=== PATIENT | male | born 1960 | race Caucasian/White ===

== ENCOUNTER 2020-09-10 08:11 | Observation (INO) ==
[~2020-09-10 08:11] MED LIST: Vancomycin 1,500 MG/265 ML IV.SOLN IVPB ONE
[2020-09-10] MEDS ORDERED: CeFAZolin Syr 2,000MG/20 ML 2,000 MG/20 ML SYRINGE IVPB ONE (08:37)
[2020-09-10] MEDS ORDERED: Albuterol 2.5 MG/3 ML NEBULIZER IH PRN (08:37)
[2020-09-10] MEDS ORDERED: Ringers Solution, Lactated 1,000 ML IVC SCH (08:45)
[2020-09-10] MEDS ORDERED: *HR* OxyCODONE ER (12 HR) 10 MG TABLET PO ONE (09:08)
[2020-09-10] MEDS ORDERED: *HR* OxyCODONE Immed Rel 5 MG TABLET PO PRN ×2 (09:10→13:35)
[2020-09-10] MEDS ORDERED: Ondansetron 4 MG/2 ML VIAL IVP PRN ×2 (09:10→13:35)
[2020-09-10] MEDS ORDERED: *HR* FentaNYL (PF) 100 MCG/2 ML VIAL ONE ×2 (09:43→10:04)
[2020-09-10] MEDS ORDERED: Ropivacaine/PF 0.5% 30 ML VIAL ONE (09:43)
[2020-09-10] MEDS ORDERED: *HR* Midazolam HCl 2 MG/2 ML VIAL ONE ×2 (09:43→10:04)
[2020-09-10] MEDS ORDERED: *HR* Succinylcholine 200 MG/10 ML VIAL IVP ONE (10:04)
[2020-09-10] MEDS ORDERED: *HR* Propofol 200 MG/20 ML VIAL IVP ONE (10:04)
[2020-09-10] MEDS ORDERED: Lidocaine HCL 4 ML Topical Solution (Laryng-O-Jet Kit Sterile Pak) TP ONE (10:04)
[2020-09-10] MEDS ORDERED: Lidocaine -MPF 2% 2 ML VIAL ONE (10:04)
[2020-09-10] MEDS ORDERED: Ondansetron 4 MG/2 ML VIAL ONE (10:04)
[2020-09-10] MEDS ORDERED: Tranexamic Acid 1,000 MG/10 ML VIAL ONE (10:16)
[2020-09-10] MEDS ORDERED: Vancomycin 1,000 MG VIAL ONE (10:39)
[2020-09-10] MEDS ORDERED: Ethanol\\Acetic Acid\\Na Ace\\Ben 1,000 ML IRRIG.SOLN IR ONE (10:39)
[2020-09-10] MEDS ORDERED: Dexamethasone 4 MG/ML VIAL ONE (11:16)
[2020-09-10] MEDS ORDERED: Povidone-Iodine 45 ML, Sodium Chloride IRRigation 1,000 ML IR ONE (11:25)
[2020-09-10] MEDS ORDERED: TOTAL JOINT MIXTURE (100ML) INTRAART ONE (11:25)
[2020-09-10] MEDS ORDERED: *HR* HYDROMORPHONE 2 MG/ML VIAL ONE (12:06)
[2020-09-10] MEDS: *HR* HYDROmorphone PF 0.5 MG/0.5 ML SYRINGE IVP PRN ×3 (12:47→13:07)
[2020-09-10 13:11] LABS: Hematocrit 42.3 % (37.5-50.1); Hemoglobin 14.1 g/dL (12.9-16.9)
[2020-09-10] MEDS ORDERED: D5% in Water 1,000 ML IVC PRN (13:35)
[2020-09-10] MEDS ORDERED: Dextrose Gel 15 GM/37.5 ML TUBE PO PRN ×2 (13:35)
[2020-09-10] MEDS ORDERED: MOM Conc 10 ML UD.LIQ PO PRN (13:35)
[2020-09-10] MEDS ORDERED: Sennosides 8.6 MG TABLET PO PRN (13:35)
[2020-09-10] MEDS ORDERED: *HR* Promethazine 25 MG/ML VIAL IM PRN (13:35)
[2020-09-10] MEDS ORDERED: Naloxone 0.4 MG/ML INJ IVP PRN (13:35)
[2020-09-10] MEDS ORDERED: HYDROcodone BIT/Homatropine 5 MG TABLET PO PRN (13:35)
[2020-09-10] MEDS ORDERED: *HR* Dextrose 50 % in Water (Vial) 50 ML VIAL IVP PRN (13:35)
[2020-09-10] MEDS ORDERED: Apixaban 5 MG TABLET PO SCH (14:45)
[2020-09-10] MEDS: Ringers Solution, Lactated 1,000 ML IVC SCH (15:07)
[2020-09-10] MEDS: Insulin LISPRO 300 UNITS/3 ML VIAL SUBQ SCH ×3 (15:08→21:10)
[2020-09-10] MEDS ORDERED: Perflutren Lipid Microsphere 1.3 ML in 0.9 % Sodium Chloride 8.7 ML IVP PRN (16:02)
[2020-09-10] MEDS ORDERED: 0.9 % Sodium Chloride 1,000 ML IVC SCH (16:15)
[2020-09-10] MEDS: Ipratropium/Albuterol Neb 3 ML IH SCH ×2 (17:34→21:57)
[2020-09-10] MEDS: Ascorbic Acid 500 MG TABLET PO SCH (18:00)
[2020-09-10] MEDS ORDERED: Vancomycin 1,500 MG/265 ML IV.SOLN IVPB ONE (21:00)
[2020-09-10] MEDS: CeFAZolin 2 GM/120 ML BAG IVPB SCH (21:09)
[2020-09-10] MEDS: BuPROPion SR (12 HR) 150 MG TABLET PO SCH (21:10)
[2020-09-10] MEDS: Apixaban 5 MG TABLET PO SCH (21:10)
[2020-09-11] MEDS: CeFAZolin 2 GM/120 ML BAG IVPB SCH (03:29)
[2020-09-11] MEDS: Ipratropium/Albuterol Neb 3 ML IH SCH ×4 (03:55→21:50)
[2020-09-11 05:43] LABS: Basophils % 0.1 %; Immature Granulocytes % 0.6 % (0-4); Lymphocytes # 0.9 K/mcL (0.6-4.6); Lymphocytes % 6.1 %; Mean Corpuscular HGB Conc 32.9 g/dL (31.6-35.5); Mean Corpuscular Hemoglobin 30.6 pg (28.0-33.3); Mean Corpuscular Volume 92.9 fL (83.0-100.0); Mean Platelet Volume 8.9 fL (9.4-12.4); Monocytes # 1.3 K/mcL (0.0-1.3); Monocytes % 8.4 %; Neutrophils # 12.9 K/mcL (1.6-8.9); Platelet Count 237 K/mcL (140-400); Red Blood Count 4.09 M/mcL (4.19-5.50); Red Cell Distribution Width 13.3 % (11.5-14.5); Segmented Neutrophils % 84.8 %; White Blood Count 15.1 K/mcL (4.3-11.1)
[2020-09-11 05:44] LABS: Hemoglobin 12.5 g/dL (12.9-16.9)
[2020-09-11 06:02] LABS: BUN/Creatinine Ratio 17 (6-26); Blood Urea Nitrogen 16 mg/dL (8-23); Calcium 8.7 mg/dL (8.6-10.3); Carbon Dioxide 26 mEq/L (23-29); Chloride 101 mEq/L (98-107); Glucose 117 mg/dL (70-105); Osmolality,Calculated 280 (280-300); Potassium 4.1 mEq/L (3.5-5.1); Sodium 134 mEq/L (136-145); eGFR For African Americans > 60 (> 60); eGFR For Non-African Americans > 60 (> 60)
[2020-09-11] MEDS ORDERED: Isovue-370 500 ML BOTTLE IVP ONE (07:08)
[2020-09-11] MEDS: Insulin LISPRO 300 UNITS/3 ML VIAL SUBQ SCH ×4 (07:34→21:15)
[2020-09-11] MEDS: Multivit/Ca/Min/Fe/FA 1 TAB TABLET PO SCH (07:51)
[2020-09-11] MEDS: Apixaban 5 MG TABLET PO SCH ×2 (07:51→21:15)
[2020-09-11] MEDS: lisinopriL 10 MG TABLET PO SCH (07:51)
[2020-09-11] MEDS: Ascorbic Acid 500 MG TABLET PO SCH ×2 (07:51→17:07)
[2020-09-11] MEDS: Cholecalciferol (D-3) 1,000 UNIT (25MCG) TABLET PO SCH (07:52)
[2020-09-11] MEDS: BuPROPion SR (12 HR) 150 MG TABLET PO SCH ×2 (07:52→21:15)
[2020-09-11] MEDS ORDERED: GI Cocktail 40 ML EACH PO ONE (11:05)
[2020-09-11 13:59] LABS: Estimated Average Glucose 117 mg/dl; Hemoglobin A1C 5.7 %
[2020-09-11] MEDS: Ringers Solution, Lactated 1,000 ML IVC SCH (17:06)
[2020-09-11] MEDS: Famotidine 20 MG TABLET PO SCH (21:15)
[2020-09-12] MEDS: Ipratropium/Albuterol Neb 3 ML IH SCH ×3 (03:42→15:14)
[2020-09-12 05:18] LABS: Basophils % 0.4 %; Eosinophils # 0.1 K/mcL (0.0-0.6); Eosinophils % 1.3 %; Hematocrit 33.4 % (37.5-50.1); Hemoglobin 11.3 g/dL (12.9-16.9); Immature Granulocytes % 0.4 % (0-4); Lymphocytes # 2.7 K/mcL (0.6-4.6); Lymphocytes % 24.9 %; Mean Corpuscular HGB Conc 33.8 g/dL (31.6-35.5); Mean Corpuscular Hemoglobin 31.1 pg (28.0-33.3); Mean Platelet Volume 8.9 fL (9.4-12.4); Monocytes # 1.2 K/mcL (0.0-1.3); Monocytes % 11.5 %; Neutrophils # 6.6 K/mcL (1.6-8.9); Platelet Count 223 K/mcL (140-400); Red Blood Count 3.63 M/mcL (4.19-5.50); Red Cell Distribution Width 13.6 % (11.5-14.5); Segmented Neutrophils % 61.5 %; White Blood Count 10.7 K/mcL (4.3-11.1)
[2020-09-12 05:40] LABS: BUN/Creatinine Ratio 18 (6-26); Blood Urea Nitrogen 17 mg/dL (8-23); Calcium 8.5 mg/dL (8.6-10.3); Carbon Dioxide 26 mEq/L (23-29); Chloride 101 mEq/L (98-107); Glucose 99 mg/dL (70-105); Osmolality,Calculated 278 (280-300); Potassium 3.8 mEq/L (3.5-5.1); Sodium 133 mEq/L (136-145); eGFR For African Americans > 60 (> 60); eGFR For Non-African Americans > 60 (> 60)
[2020-09-12 07:48] VITALS: BP 117/67
[2020-09-12] MEDS: Ascorbic Acid 500 MG TABLET PO SCH (08:29)
[2020-09-12] MEDS: BuPROPion SR (12 HR) 150 MG TABLET PO SCH (08:30)
[2020-09-12] MEDS: Cholecalciferol (D-3) 1,000 UNIT (25MCG) TABLET PO SCH (08:30)
[2020-09-12] MEDS: Multivit/Ca/Min/Fe/FA 1 TAB TABLET PO SCH (08:30)
[2020-09-12] MEDS: Famotidine 20 MG TABLET PO SCH (08:30)
[2020-09-12] MEDS: lisinopriL 10 MG TABLET PO SCH (08:30)
[2020-09-12] MEDS: Apixaban 5 MG TABLET PO SCH (08:30)
[2020-09-12] MEDS: Insulin LISPRO 300 UNITS/3 ML VIAL SUBQ SCH (08:40)
== END 2020-09-12 16:00 | disposition home health service (06) ==
LOC: 3NENU 08:11 → SAMDAY 08:11 → 3NENU 13:34
PROVIDERS: ADMIT Orthopaedic Surgery; ATTEND Orthopaedic Surgery